=== PATIENT | born 1960 ===

== ENCOUNTER 2019-03-11 11:37 | Outpatient (RCR) | payer SELFPAY ==
[2019-03-11 12:07] LABS: Basophils # 0.1 10^3/uL (0.0-0.1); Eosinophils # 0.7 10^3/uL (0.0-0.8); Eosinophils % 6.1 %; Hematocrit 40.4 % (37.0-47.0); Hemoglobin 13.1 g/dL (11.7-16.6); Lymphocytes # 2.7 10^3/uL (0.8-4.8); Lymphocytes % 22.7 %; Mean Corpuscular HGB Conc 32.4 g/dL (30.0-36.0); Mean Corpuscular Volume 92.4 fL (81-99); Monocytes # 1.4 10^3/uL (0.2-0.9); Monocytes % 11.8 %; Neutrophils % 58.2 %; Nucleated Red Blood Cells % 0 %; Platelet Count 430 10^3/cmm (130-400); Red Blood Count 4.37 10^6/uL (4.1-5.3); Red Cell Distribution Width 13.5 % (12.1-15.1)
[2019-03-11 12:30] LABS: Alanine Aminotransferase 40 U/L (0-33); Albumin Level 4.4 g/dL (3.5-5.2); Alkaline Phosphatase 142 IU/L (35-105); Anion Gap 19.7 (5-19); Aspartate Amino Transferase 24 U/L (0-32); Blood Urea Nitrogen 38 mg/dL (8-23); Calcium 10.8 mg/Dl (8.8-10.2); Carbon Dioxide 25 mmol/L (22-29); Chloride 97 mmol/L (98-107); Globulin 2.7 g/dL (1.3-4.6); Glomerular Filtration Rate 76.2 mL/min (90-130); Glucose 320 mg/dL (74-106); Potassium 4.7 mmol/L (3.5-5.1); Sodium 137 mmol/L (136-145); Thyroid Stimulating Hormone 1.89 uIU/mL (0.27-4.20); Total Bilirubin 0.8 mg/dL (0.15-1.2); Total Protein 7.1 g/dL (6.6-8.7)
== END 2019-04-02 23:59 | disposition home or self-care (01) ==
LOC: LAB 11:37
PROVIDERS: Visit Provider Dermatology
DX: N17.9 Acute kidney failure, unspecified (principal); I50.22 Chronic systolic (congestive) heart failure; E03.9 Hypothyroidism, unspecified
CPT/HCPCS: 80053; 84443; 85025